=== PATIENT | male | born 1955 | race Caucasian/White ===

== ENCOUNTER → 2017-08-18 | Outpatient (CLI) | payer BC ==
[~2017-08-18] MED LIST: LISINOPRIL20 MG PO; TECFIDERA240 MG PO
== END | disposition home or self-care (01) ==
LOC: CDC 15:39
DX: Z79.899 Other long term (current) drug therapy (principal); G35 Multiple sclerosis
CPT/HCPCS: 93000

== ENCOUNTER → 2017-08-18 | Outpatient (CLI) | payer BC | END | disposition home or self-care (01) | LOC: CDC 08:31 | DX: Z79.899 Other long term (current) drug therapy (principal); G35 Multiple sclerosis | CPT/HCPCS: 93000 ==